=== PATIENT | male | born 1955 | race Caucasian/White ===

== ENCOUNTER → 2022-10-24 13:42 | Outpatient (BNVA) | payer MEDICARE, SELFPAY | PROVIDERS: PCP Family Medicine; Visit Provider Internal Medicine Cardiovascular Disease | DX: I25.10 Atherosclerotic heart disease of native coronary artery without angina pectoris (principal); I10 Essential (primary) hypertension; E78.5 Hyperlipidemia, unspecified; Z87.891 Personal history of nicotine dependence | CPT/HCPCS: 99204; Q3014 ==

== ENCOUNTER → 2023-01-08 08:27 | Outpatient (BNVA) | payer MEDICARE, SELFPAY | PROVIDERS: PCP Family Medicine; Visit Provider Nurse Practitioner Family | DX: L71.8 Other rosacea (principal); D22.5 Melanocytic nevi of trunk; Z71.89 Other specified counseling; L85.3 Xerosis cutis; B07.0 Plantar wart; Z85.828 Personal history of other malignant neoplasm of skin; L02.12 Furuncle of neck; L72.0 Epidermal cyst; Z80.8 Family history of malignant neoplasm of other organs or systems; L81.4 Other melanin hyperpigmentation; L57.8 Other skin changes due to chronic exposure to nonionizing radiation | CPT/HCPCS: 99214 ==

== ENCOUNTER → 2023-02-12 10:23 | Outpatient (BNVA) | payer MEDICARE, SELFPAY | PROVIDERS: PCP Family Medicine; Visit Provider Nurse Practitioner Family | DX: L21.8 Other seborrheic dermatitis (principal); L57.0 Actinic keratosis; L72.0 Epidermal cyst; L81.4 Other melanin hyperpigmentation; D22.5 Melanocytic nevi of trunk; B07.0 Plantar wart; Z85.828 Personal history of other malignant neoplasm of skin; Z87.891 Personal history of nicotine dependence | CPT/HCPCS: 11900; 17000; 17003; 99214 ==

== ENCOUNTER → 2023-06-04 11:48 | Outpatient (BNVA) | payer MEDICARE, SELFPAY | PROVIDERS: PCP Family Medicine; Visit Provider Internal Medicine Cardiovascular Disease | DX: R07.9 Chest pain, unspecified (principal); I45.10 Unspecified right bundle-branch block; I10 Essential (primary) hypertension; I25.10 Atherosclerotic heart disease of native coronary artery without angina pectoris; E78.5 Hyperlipidemia, unspecified; I45.2 Bifascicular block; Z87.891 Personal history of nicotine dependence | CPT/HCPCS: 93005; 99214 ==

== ENCOUNTER 2023-06-10 09:23 | Outpatient (CLI) | payer MEDICARE, SELFPAY ==
[2023-06-10 09:43] VITALS: BMI 31.1
--- NOTE | 2023-06-10 09:43 | ECG_ITS ---
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 Interpretive Statements NAME OF STUDY: LEXISCAN SESTAMIBI STRESS TEST INDICATION: Chest Pain PROCEDURE: At the baseline, the blood pressure was 138/100 mm Hg with a heart rate of 70 bpm. The electrocardiogram showed sinus rhythm, left anterior fascicular block. RBBB. The Lexiscan was infused over a period of 20 seconds. A total of 0.4 milligrams of Lexiscan was infused. The stress phase was continued for a total of 5 minutes. Heart rate at the end of the stress phase was 79 bpm with a blood pressure of 147/107 mm Hg. The EKG at the peak infusion revealed no significant ST-T wave changes. Sestamibi was injected 20 seconds after the Lexiscan infusion. Blood pressure at the end of the recovery phase was 144/106 mm Hg with a heart rate of 75 beats per minute. CONCLUSION: 1. No significant EKG changes with the LexiScan infusion. 2. No LexiScan induced chest pain or cardiac arrhythmia. 3. Normal blood pressure and heart rate response. 4. Sestamibi/sestamibi perfusion scan pending; see separate report. Electronically Signed On 06-16-2023 10:09:46 CDT by Tania Montes M.D. [id number]
--- NOTE | 2023-06-10 09:44 | NMCV_ITS ---
NM daquan perf SPECT r/s* [id number] George Álvarez Age: 68 Gender: M : 1955 Exam Date: 06/10/2023 10:38 Ordering Phys: Tania Montes MD ([email or web address]) Technologist: ORESTES Torres Exam Location: [facility] Indications: CHEST PAIN STRESS TEST Please see separate stress test report in [facility] for full findings IMAGE PROTOCOL Rest/Stress 1 Lexiscan Day Radiopharmaceutical Dose (mCi) Administration Site Administered by Rest: Tc-99m 10.7 IV ORESTES Campbell Sestamibi Stress:Tc-99m 33.0 IV ORESTES Campbell Sestamibi Rest: 10-Jun-2023 60 Discovery 630 Stress: 10-Jun-2023 30 Discovery 630 0.4mg Lexiscan. Images obtained in supine and prone position. SPECT RESULTS Technical Quality: Excellent Raw Data Analysis: Normal Image Corrections: No attenuation or motion correction applied Summed Stress Score: 11 Summed Rest Score: 9 Summed Difference Score: 3 PERFUSION FINDINGS Medium sized perfusion abnormality of moderate severity of basal to apical inferior, basal to mid infero-lateral and mid infero-septal waller on rest images with minimal reversibility noted in mid to inferior waller. FUNCTIONAL RESULTS (calculated via Gated SPECT) Stress Image LV EF (%): 64 Stress EDV (mL):96 TID: 1 Stress ESV (mL):35 FUNCTIONAL FINDINGS: The left ventricle is normal in size. Transient Ischemia Dilatation of 1. The left ventricular ejection fraction is normal with a value of 64%. There is mild hypokinesis of basal to mid inferior waller. Normal end diastolic and end systolic volumes. IMPRESSIONS 1. Medium sized perfusion abnormality of moderate severity of basal to apical inferior, basal to mid infero-lateral and mid infero-septal waller with minimal reversibility noted in mid to inferior waller. 2. 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 3. The left ventricular ejection fraction is normal with a value of 64%. 4. There is mild hypokinesis of basal to mid inferior waller. 5. EKG portion of the study will be reported separately. Tania Montes MD (Electronically Signed) Final Date: 15 June 2023 20:12 S
[2023-06-10] MEDS: regadenoson 0.4 Mg/5 ml Syringe IVP (11:08)
[2023-06-10 11:30] VITALS: BP 144/106; PULSE 78
== END 2023-06-10 09:24 | disposition home or self-care (01) ==
LOC: CDL 09:23
PROVIDERS: PCP Family Medicine; Visit Provider Internal Medicine Cardiovascular Disease
DX: R07.9 Chest pain, unspecified (principal); R94.30 Abnormal result of cardiovascular function study, unspecified
CPT/HCPCS: 36415; 78452; 93017; 96374; A9500; J2785

== ENCOUNTER → 2023-10-21 14:39 | Outpatient (BNVA) | payer MEDICARE, SELFPAY | PROVIDERS: PCP Family Medicine; Visit Provider Podiatrist Foot & Ankle Surgery | DX: Q66.71 Congenital pes cavus, right foot; Q66.72 Congenital pes cavus, left foot; Q82.8 Other specified congenital malformations of skin; M25.871 Other specified joint disorders, right ankle and foot | CPT/HCPCS: 99213 ==

== ENCOUNTER 2023-11-19 10:24 | Outpatient (CLI) | payer MEDICARE, SELFPAY | END 2023-11-19 10:25 | disposition home or self-care (01) | LOC: SPT 10:25 | PROVIDERS: PCP Family Medicine; Visit Provider Podiatrist Foot & Ankle Surgery | DX: Z46.89 Encounter for fitting and adjustment of other specified devices (principal); Q66.71 Congenital pes cavus, right foot; Q66.72 Congenital pes cavus, left foot; Q82.8 Other specified congenital malformations of skin; M92.61 Juvenile osteochondrosis of tarsus, right ankle | CPT/HCPCS: 97760; L3030 ==

== ENCOUNTER → 2023-12-11 13:54 | Outpatient (BNVA) | payer MEDICARE, SELFPAY | PROVIDERS: PCP Family Medicine; Visit Provider Internal Medicine | DX: R07.9 Chest pain, unspecified (principal); I25.10 Atherosclerotic heart disease of native coronary artery without angina pectoris; I10 Essential (primary) hypertension; E78.5 Hyperlipidemia, unspecified; Z87.891 Personal history of nicotine dependence | CPT/HCPCS: 99214 ==

== ENCOUNTER 2025-01-17 08:22 | Outpatient (CLI) | payer MEDICARE, SELFPAY ==
--- NOTE | 2025-01-17 08:32 | CT_ITS ---
WS: [id number] CT ABDOMEN WITHOUT CONTRAST HISTORY: FLANK PAIN Contiguous single phase 5 mm axial imaging performed of the abdomen. Oral contrast has not been provided. Coronal and sagittal reformats are submitted. All CT scans at [facility] use at least one of these dose optimization techniques: automated exposure control; mA and/or kV adjustment per patient size (includes targeted exams where dose is matched to clinical indication); or iterative reconstruction. IV CONTRAST: None Oral contrast: No DLP: 415.96 mGy.cm COMPARISON: None available. Lower thorax: Mild elevated RIGHT hemidiaphragm. Linear atelectasis at the RIGHT lung base. No pulmonary mass or nodule. There is a benign calcified granuloma at the RIGHT lung base. Normal size heart with scattered coronary artery calcifications. Calcifications most significantly in the LAD and LEFT c ircumflex. No hiatal hernia. Liver/biliary system: Normal size with no intrahepatic dilatation. Gallbladder: Normal. No gallstones or wall thickening. No pericholecystic fluid. Pancreas: Normal size pancreas and pancreatic duct. No adjacent inflammation. Spleen: Normal size spleen. No mass or infarct. Adrenal glands: Well-circumscribed low-attenuation adenoma RIGHT adrenal gland measures 2.0 x 1.9 cm. Normal LEFT adrenal gland. Right kidney: Mild perinephric stranding, no obstruction or mass. Vascular calcifications centrally. Proximal RIGHT ureter is not dilated. Left kidney: Mild perinephric stranding with no obstruction or mass. Aorta: Mild atherosclerosis with no aneurysm. Lymphadenopathy: None. Free fluid: None. GI tract: GI tract included within the abdomen CT demonstrates no acute abnormality. No obstruction. Mild constipation RIGHT colon. The appendix is partially included on this examination and normal. Abdominal wall: Unremarkable abdominal wall. No hernia. Visualized osseous structures: Mild scoliosis. CT/CT abdomen wo con [id number] IMPRESSION: 1. No renal obstruction. No hydronephrosis. Distal ureters are not included on this CT of the abdomen. 2. Mild atherosclerosis aorta. 3. RIGHT adrenal adenoma, 2.0 x 1.9 cm.
== END 2025-01-17 08:23 | disposition home or self-care (01) ==
LOC: RAD 08:24
PROVIDERS: PCP Family Medicine; Visit Provider Nurse Practitioner Family
DX: R10.9 Unspecified abdominal pain (principal); I70.0 Atherosclerosis of aorta; D35.01 Benign neoplasm of right adrenal gland; R93.5 Abnormal findings on diagnostic imaging of other abdominal regions, including retroperitoneum; J98.11 Atelectasis; J84.10 Pulmonary fibrosis, unspecified; I25.10 Atherosclerotic heart disease of native coronary artery without angina pectoris; N28.89 Other specified disorders of kidney and ureter; K59.00 Constipation, unspecified; M41.9 Scoliosis, unspecified
CPT/HCPCS: 74150

== ENCOUNTER 2025-08-15 07:03 | Outpatient (CLI) | payer MEDICARE, SELFPAY ==
--- NOTE | 2025-08-15 07:27 | MR_ITS ---
WS: [id number] MRI THORACIC SPINE WITH CONTRAST TECHNIQUE: Sagittal T1, T2 and STIR imaging. Axial T2 imaging. Post gadolinium imaging was obtained. CLINICAL INFORMATION: Right sided thoracic pain COMPARISON: None. FINDINGS: Mild thoracic curve. Mild thoracic kyphosis. Cord signal is normal. No abnormal gadolinium enhancement. No enhancing lesions in the thoracic cord. No significant cord atrophy. Mild spondylitic changes. Moderate facet arthropathy lower thoracic spine. Tiny central protrusion T9-T10 with a tiny annular fissure. Mild LEFT T10-11 foraminal narrowing. Tiny esophageal hiatal hernia. 2.1 cm RIGHT adrenal adenoma. LEFT adrenal gland is normal. MR/MR thoracic spine wo/w [id number] IMPRESSION: 1. Mild thoracic curve. No acute compression fractures. 2. Cord signal is normal. No abnormal gadolinium enhancement. 3. Moderate facet arthropathy lower thoracic spine. 4. Tiny central protrusion T9-T10 with a tiny annular fissure. 5. Mild LEFT T10-11 foraminal narrowing
[2025-08-15] MEDS: gadobenate dimeglumine 20 mL vial IV (07:55)
== END 2025-08-15 07:04 | disposition home or self-care (01) ==
LOC: RAD 07:04
PROVIDERS: PCP Family Medicine; Visit Provider Family Medicine
DX: M54.6 Pain in thoracic spine (principal); M47.894 Other spondylosis, thoracic region; M48.04 Spinal stenosis, thoracic region; M40.04 Postural kyphosis, thoracic region
CPT/HCPCS: 72157